=== PATIENT | female | born 1955 | race Caucasian/White ===

== ENCOUNTER 2016-12-25 07:49 | Day surgery (SDC) | payer MEDICAID, OTHER ==
[2016-12-25] MEDS ORDERED: Lactated Ringers 1,000 ML IV SCH (08:30)
[2016-12-25] MEDS ORDERED: fentaNYL 100 MCG/2 ML SDV ONE (09:36)
[2016-12-25] MEDS ORDERED: Midazolam 1 MG/ML 2 ML SDV ONE (09:36)
[2016-12-25] MEDS ORDERED: Propofol 200 MG/20 ML SDV ONE (09:36)
[2016-12-25 11:28] VITALS: BP 114/45
--- NOTE | 2016-12-26 07:46 | OR ---
DATE OF PROCEDURE: 12/25/2016 PREOPERATIVE DIAGNOSIS: Colon cancer screening. POSTOPERATIVE DIAGNOSIS: Diverticulosis. PROCEDURE: Colonoscopy to the cecum. ANESTHESIA: IV anesthesia with monitored anesthesia care. INDICATIONS: This 61-year-old white female is referred for a colonoscopy for colon cancer screening. She says her last colonoscopic exam was done when she was 50, about 11 years ago. I counseled her for the procedure including risks and alternatives, and she gave her informed consent to proceed. DESCRIPTION OF PROCEDURE: The patient was placed in the left lateral decubitus position. IV anesthesia was administered by the Anesthesia Service. Time-out was held. A rectal exam was performed, which was unremarkable. The flexible video Olympus colonoscope was introduced through her anus, up her rectum, and out her colon all the way to the cecum. Once the cecum was reached, the scope was slowly withdrawn examining the mucosa throughout. No mucosal abnormalities were noted until we reached the left colon. Here and in the sigmoid colon, there were multiple diverticula. There was no bleeding or inflammation associated with any of them. The scope was retroflexed in the rectum with the distal rectum appearing unremarkable. The scope was straightened and removed. She tolerated the procedure well. Kenan Dang MD /[id number] [facility]
== END 2016-12-25 11:00 ==
LOC: JP.SDS 07:49
PROVIDERS: ATTEND Surgery
DX: Z12.11 Encounter for screening for malignant neoplasm of colon (principal); K57.30 Diverticulosis of large intestine without perforation or abscess without bleeding; I10 Essential (primary) hypertension; E78.5 Hyperlipidemia, unspecified; Z88.0 Allergy status to penicillin; Z88.1 Allergy status to other antibiotic agents; Z88.2 Allergy status to sulfonamides; Z87.891 Personal history of nicotine dependence; Z98.84 Bariatric surgery status; Z96.659 Presence of unspecified artificial knee joint; D50.9 Iron deficiency anemia, unspecified; Z98.890 Other specified postprocedural states
CPT/HCPCS: 45378; J2250; J2704; J3010